=== PATIENT | female | born 1950 | race African-American/Black ===

== ENCOUNTER 2020-06-27 10:11 | Emergency (ER) | payer OTHER ==
[~2020-06-27] VITALS: Ht 165.1 cm; Wt 84.0 kg
[2020-06-27] MEDS ORDERED: METHYLPREDNISOLONE SOD SUCC 125 MG/2 ML VIAL IV STA (10:37)
[2020-06-27] MEDS ORDERED: IPRATROPIUM BROMIDE (0.02%) 0.5MG/2.5ML NEB HHN STA (10:37)
[2020-06-27] MEDS ORDERED: ALBUTEROL (0.083%) 2.5MG/3ML NEB HHN STA (10:37)
[2020-06-27] MEDS ORDERED: MAGNESIUM 2 G PREMIX 50 ML IV ONE (10:45)
[2020-06-27 10:52] LABS: BASOPHILS % 0.9 % (0.0-2.0); EOSINOPHILS % 11.5 % (0.0-5.0); HEMATOCRIT. 40.8 % (36.0-48.0); HEMOGLOBIN. 13.2 g/dL (12.0-16.0); LYMPHOCYTES % 21.9 % (20.0-50.0); MEAN CORPUSCULAR HEMOGLOBIN 29.2 pg (28.0-32.0); MEAN PLATELET VOLUME 7.2 fl (7.4-10.4); MONOCYTES % 7.9 % (2.0-8.0); NEUTROPHILS % 57.8 % (40.0-76.0); PLATELET 357 x1000/uL (130-400); RED BLOOD CELL COUNT 4.53 mill/uL (4.2-5.4); RED CELL DISTRIBUTION WIDTH 14.6 % (11.6-14.6)
[2020-06-27 10:53] LABS: CHLORIDE 107 mEq/L (98-107)
[2020-06-27 15:25] VITALS: BP 147/66
== END 2020-06-27 15:39 | disposition home or self-care (01) ==
LOC: ER 10:11
DX: J44.1 Chronic obstructive pulmonary disease with (acute) exacerbation (principal); I10 Essential (primary) hypertension; Z88.0 Allergy status to penicillin; Z88.6 Allergy status to analgesic agent; Z98.890 Other specified postprocedural states
CPT/HCPCS: 36415; 71045; 80053; 83880; 84484; 85025; 93005; 94644; 96365; 96366; 96375; 99285; J2930; J3475; Z7610

== ENCOUNTER 2020-07-14 09:02 | Emergency (ER) | payer OTHER ==
[~2020-07-14] VITALS: Ht 165.1 cm; Wt 83.9 kg
[2020-07-14] MEDS ORDERED: ALBUTEROL (0.083%) 2.5MG/3ML NEB HHN STA (09:50)
[2020-07-14] MEDS ORDERED: IPRATROPIUM BROMIDE (0.02%) 0.5MG/2.5ML NEB HHN STA (09:50)
[2020-07-14] MEDS ORDERED: METHYLPREDNISOLONE SOD SUCC 125 MG/2 ML VIAL IV STA (09:50)
[2020-07-14 10:10] LABS: BASOPHILS % 0.9 % (0.0-2.0); EOSINOPHILS % 1.9 % (0.0-5.0); HEMOGLOBIN. 12.9 g/dL (12.0-16.0); LYMPHOCYTES % 18.5 % (20.0-50.0); MEAN CORPUSCULAR HEMOGLOBIN 29.7 pg (28.0-32.0); MEAN CORPUSCULAR VOLUME 89.7 fL (81.0-99.0); MEAN PLATELET VOLUME 7.7 fl (7.4-10.4); MONOCYTES % 7.8 % (2.0-8.0); NEUTROPHILS % 70.9 % (40.0-76.0); PLATELET 225 x1000/uL (130-400); RED BLOOD CELL COUNT 4.35 mill/uL (4.2-5.4); RED CELL DISTRIBUTION WIDTH 14.9 % (11.6-14.6)
[2020-07-14 10:12] LABS: CLARITY URINE CLEAR (CLEAR); COLOR URINE YELLOW (YELLOW); KETONES URINE NEGATIVE (NEGATIVE); LEUKOCYTE ESTERASE URINE TRACE (NEGATIVE); NITRITE URINE NEGATIVE (NEGATIVE); OCCULT BLOOD URINE NEGATIVE (NEGATIVE); PH URINE 6.5 (4.5-8.0); PROTEIN URINE NEGATIVE (NEGATIVE); SPECIFIC GRAVITY URINE 1.012 (1.005-1.030); UROBILINOGEN URINE 0.2 E.U./dL (0.2-1.0)
[2020-07-14 10:15] LABS: CHLORIDE 107 mEq/L (98-107)
[2020-07-14 11:31] VITALS: BP 117/66
== END 2020-07-14 12:07 | disposition home or self-care (01) ==
LOC: ER 09:02
DX: J45.901 Unspecified asthma with (acute) exacerbation (principal); I10 Essential (primary) hypertension; Z88.0 Allergy status to penicillin; Z88.6 Allergy status to analgesic agent
CPT/HCPCS: 36415; 71045; 80053; 81003; 85025; 93005; 94640; 96374; 99285; J2930

== ENCOUNTER 2021-03-05 15:50 | Emergency (ER) | payer OTHER ==
[~2021-03-05] VITALS: Ht 165.1 cm; Wt 77.0 kg
[2021-03-05] MEDS ORDERED: LEVO750T46 MT (17:41)
[2021-03-05 18:25] VITALS: BP 141/87
== END 2021-03-05 18:25 | disposition home or self-care (01) ==
LOC: ER 15:50
DX: N39.0 Urinary tract infection, site not specified (principal); Z88.5 Allergy status to narcotic agent; Z88.0 Allergy status to penicillin
CPT/HCPCS: 99283

== ENCOUNTER 2022-02-02 00:07 | Emergency (ER) | payer OTHER ==
[~2022-02-02] VITALS: Ht 170.2 cm; Wt 69.0 kg
[~2022-02-02 00:07] MED LIST: LEVO750T46 MT
[2022-02-02] MEDS ORDERED: ASPIRIN 81MG TABLET PO ONE (01:00)
[2022-02-02 01:17] LABS: BASOPHILS % 0.7 % (0.0-2.0); EOSINOPHILS % 0.8 % (0.0-5.0); HEMOGLOBIN. 12.1 g/dL (12.0-16.0); LYMPHOCYTES % 12.5 % (20.0-50.0); MEAN CORPUSCULAR HEMOGLOBIN 29.2 pg (28.0-32.0); MEAN CORPUSCULAR VOLUME 89.2 fL (81.0-99.0); MEAN PLATELET VOLUME 7.1 fl (7.4-10.4); MONOCYTES % 3.6 % (2.0-8.0); NEUTROPHILS % 82.4 % (40.0-76.0); PLATELET 296 x1000/uL (130-400); RED BLOOD CELL COUNT 4.15 mill/uL (4.2-5.4); RED CELL DISTRIBUTION WIDTH 13.9 % (11.6-14.6)
[2022-02-02 01:28] LABS: CHLORIDE 110 mEq/L (98-107)
[2022-02-02 04:00] VITALS: BP 148/76
== END 2022-02-02 04:42 | disposition home or self-care (01) ==
LOC: ER 00:07
DX: J45.901 Unspecified asthma with (acute) exacerbation (principal); I10 Essential (primary) hypertension; Z88.5 Allergy status to narcotic agent; Z88.0 Allergy status to penicillin
CPT/HCPCS: 36415; 71045; 80053; 83880; 84484; 85025; 93005; 99285

== ENCOUNTER 2024-07-29 12:19 | Emergency (ER) | payer OTHER ==
[~2024-07-29] VITALS: Ht 165.1 cm; Wt 69.0 kg
[~2024-07-29 12:19] MED LIST changes: -LEVO750T46 MT; +LEVO750T68 MT
[2024-07-29 12:28] VITALS: O2SAT 98
[2024-07-29] MEDS ORDERED: OCUFLX LEFTEYE (13:00)
[2024-07-29] MEDS ORDERED: OCUFLX RIGHTEYE (13:00)
[2024-07-29 13:24] VITALS: BP 132/76; PULSE 80; RESP 16; TEMP 36.78072; O2SAT 98
== END 2024-07-29 13:26 | disposition home or self-care (01) ==
LOC: ER 12:19
DX: H00.013 Hordeolum externum right eye, unspecified eyelid (principal); I10 Essential (primary) hypertension; J45.909 Unspecified asthma, uncomplicated; Z88.0 Allergy status to penicillin; Z88.5 Allergy status to narcotic agent
CPT/HCPCS: 99283

== ENCOUNTER 2024-08-10 10:53 | Emergency (ER) | payer OTHER ==
[~2024-08-10] VITALS: Ht 165.1 cm; Wt 79.0 kg
[~2024-08-10 10:53] MED LIST changes: +OCUFLX LEFTEYE; +OCUFLX RIGHTEYE
[2024-08-10 11:03] VITALS: TEMP 98.8; O2SAT 99
[2024-08-10 12:18] VITALS: BP 125/69; PULSE 72; RESP 18; O2SAT 98
== END 2024-08-10 12:19 | disposition home or self-care (01) ==
LOC: ER 10:53
DX: L03.011 Cellulitis of right finger (principal); Z88.0 Allergy status to penicillin; Z88.5 Allergy status to narcotic agent; J45.909 Unspecified asthma, uncomplicated; I10 Essential (primary) hypertension
CPT/HCPCS: 10060; 10061; 99282; 99284

== ENCOUNTER 2024-09-19 10:48 | Emergency (ER) | payer OTHER ==
[~2024-09-19] VITALS: Ht 165.1 cm; Wt 82.0 kg
[2024-09-19 10:57] VITALS: O2SAT 100
[2024-09-19] MEDS ORDERED: NAPR-681 MT (12:29)
[2024-09-19 12:37] VITALS: BP 126/76; PULSE 82; RESP 14; TEMP 37.00296; O2SAT 99
== END 2024-09-19 12:40 | disposition home or self-care (01) ==
LOC: ER 11:11
DX: M70.21 Olecranon bursitis, right elbow (principal); I10 Essential (primary) hypertension; J45.909 Unspecified asthma, uncomplicated; Z88.0 Allergy status to penicillin; Z88.5 Allergy status to narcotic agent; Z79.899 Other long term (current) drug therapy
CPT/HCPCS: 73070; 99283